=== PATIENT | female | born 1940 | race Caucasian/White ===

== ENCOUNTER 2018-05-30 07:53 | Day surgery (SDC) | payer OTHER, BC ==
[2018-05-25 13:22] VITALS: BMI 26.6
[2018-05-30] MEDS ORDERED: PROPOFOL 20 ML ONE (08:59)
[2018-05-30] MEDS ORDERED: LIDOCAINE HCL/PF 2% SDV 5ML VIAL ONE (09:35)
[2018-05-30 10:39] VITALS: TEMP 98.1
[2018-05-30 10:55] VITALS: BP 119/79; PULSE 72
== END 2018-05-30 10:30 | disposition home or self-care (01) ==
LOC: FASU-ENDO 07:53
PROVIDERS: ATTEND Internal Medicine Gastroenterology
PROC: 0DJD8ZZ Inspection of Lower Intestinal Tract, Via Natural or Artificial Opening Endoscopic (ICD-10-PCS; principal; 2018-05-30 09:15)
DX: Z86.010 Personal history of colon polyps (principal); K57.30 Diverticulosis of large intestine without perforation or abscess without bleeding